=== PATIENT | female | born 1950 | race Caucasian/White ===

== ENCOUNTER → 2017-12-25 | Outpatient (CLI) | payer BC, MEDICARE ==
[~2017-12-25] MED LIST: ASCO500; ASPI325 PO; ASPI81EC PO; CALCAVITD PO; CALCAVITDA PO; CEFD300 PO; CELE200 PO; Calcium Glucon500 MG PO; Cyclobenzaprine5 MG PO; ERGO400 PO; ESOM20 PO; Esgic Tablet1 EACH; Esgic Tablet1 EACH PO; GLUC500 PO; HYDACE5 PO; HYDR1TAB94 PO; ISOMON30 PO; LISI10; MAGOXI400 PO; METO25ER; METO25ER PO; MULVITMIND; NISO10ER PO; NISOLDIPINE17 MG PO; Nitrostat0.4 MG SL; OMEP20ER PO; ONDA8ODT MM; OXYACE5T PO; PRAV20 PO; PRED10; PROM25 PO; PROP10 PO; PROP20 PO; Plavix75 MG PO; RABE20; Sular17 MG PO; VITAMIN D5000 UNI1 PO; Zanaflex4 MG PO; [UNRECOGNIZED DRUG - OTHER]
== END | disposition home or self-care (01) ==
LOC: LAB SHORT 12:13 → LAB EV 12:13
DX: N39.0 Urinary tract infection, site not specified (principal)
CPT/HCPCS: 87086

== ENCOUNTER 2017-12-27 10:43 | Emergency (ER) | payer BC, MEDICARE ==
[~2017-12-27] VITALS: Ht 177.8 cm; Wt 96.6 kg
[~2017-12-27 10:43] MED LIST changes: -CEFD300 PO; -Esgic Tablet1 EACH; -HYDR1TAB94 PO; -PRED10; -Zanaflex4 MG PO
[2017-12-27 11:24] LABS: BASOPHILS ABSOLUTE AUTO 0.07 K/mm3 (0.00-0.23); BASOPHILS PERCENT AUTO 1 % (0-2); EOSINOPHILS ABSOLUTE AUTO 0.37 K/mm3 (0.00-0.68); EOSINOPHILS PERCENT AUTO 5 % (0-6); Hematocrit 40.6 % (33.0-51.0); Hemoglobin 13.7 g/dL (11.5-16.0); IMMATURE GRAN ABSOLUTE AUTO 0.03 K/mm3 (0.00-0.10); IMMATURE GRAN PERCENT AUTO 0 % (0-1); LYMPHOCYTES ABSOLUTE AUTO 2.14 K/mm3 (0.84-5.20); LYMPHOCYTES PERCENT AUTO 28 % (21-46); MONOCYTES ABSOLUTE AUTO 0.79 K/mm3 (0.16-1.47); MONOCYTES PERCENT AUTO 10 % (4-13); Mean Corpuscular HGB 29.5 pg (26.0-34.0); Mean Corpuscular HGB Conc 33.7 g/dL (31.5-36.5); Mean Corpuscular Volume 88 fL (80-100); NEUTROPHILS ABSOLUTE AUTO 4.23 K/mm3 (1.96-9.15); NEUTROPHILS PERCENT AUTO 56 % (41-73); Platelet Count 215 K/mm3 (150-400); RDW Coefficient Variation 12.6 % (11.7-14.2); RDW Standard Deviation 39.9 fL (35.1-46.3); Red Blood Cell Count 4.64 M/mm3 (3.80-5.20); White Blood Cell Count 7.63 K/mm3 (4.00-11.30)
[2017-12-27] MEDS ORDERED: CEFD300 PO (11:34)
[2017-12-27] MEDS ORDERED: PRED10 (11:34)
[2017-12-27 11:35] LABS: Albumin, Blood 4.1 g/dL (3.4-5.0); Albumin/Globulin Ratio 1.3 (0.8-1.8); Bilirubin, Total 0.6 mg/dL (0.1-1.0); Bun/Creatinine Ratio 21.3 (12.0-20.0); Calcium, Blood 9.4 mg/dL (8.5-10.1); Creatinine, Blood 0.99 mg/dL (0.40-1.00); Globulin, Blood 3.2 g/dL (2.2-4.0); Potassium, Blood 4.4 mmol/L (3.5-5.5); Total Protein, Blood 7.3 g/dL (6.4-8.2)
[2017-12-27] MEDS ORDERED: Zanaflex4 MG PO (11:35)
[2017-12-27] MEDS ORDERED: HYDR1TAB94 PO (13:40)
[2017-12-28] MEDS ORDERED: Esgic Tablet1 EACH (17:36)
[2017-12-28] MEDS ORDERED: ESOM20 PO (17:37)
== END 2017-12-27 13:30 | disposition home or self-care (01) ==
LOC: ER 10:43
PROVIDERS: Emergency Medicine
DX: R10.9 Unspecified abdominal pain (principal); R91.1 Solitary pulmonary nodule; Z85.038 Personal history of other malignant neoplasm of large intestine; Z88.8 Allergy status to other drugs, medicaments and biological substances; Z79.82 Long term (current) use of aspirin; Z79.899 Other long term (current) drug therapy; I10 Essential (primary) hypertension; Z86.73 Personal history of transient ischemic attack (TIA), and cerebral infarction without residual deficits
CPT/HCPCS: 74176; 80053; 83690; 85025; J1885; J2405; J3010; J7030

== ENCOUNTER 2017-12-29 07:24 | Day surgery (SDC) | payer BC, MEDICARE ==
[~2017-12-29] VITALS: Ht 175.3 cm; Wt 97.5 kg
[~2017-12-29 07:24] MED LIST changes: +CEFD300 PO; +Esgic Tablet1 EACH; +HYDR1TAB94 PO; +PRED10; +Zanaflex4 MG PO
[2018-01-03 11:27] LABS: CD19 SEE LABOUT RESULTS; CD3 SEE LABOUT RESULTS; CD8 SEE LABOUT RESULTS
[2018-01-03 11:28] LABS: CD4 SEE LABOUT RESULTS; CD4/CD8 Ratio SEE LABOUT RESULTS
== END 2017-12-29 22:49 | disposition home or self-care (01) ==
LOC: ORSCMMR 07:24 → ORD 08:30 → ORSCMMR 22:49
PROVIDERS: Internal Medicine Critical Care Medicine
PROC: 0BBB8ZX Excision of Left Lower Lobe Bronchus, Via Natural or Artificial Opening Endoscopic, Diagnostic (ICD-10-PCS; principal; 2017-12-29 08:30)
PROC: 0B9H8ZX Drainage of Lung Lingula, Via Natural or Artificial Opening Endoscopic, Diagnostic (ICD-10-PCS; principal; 2017-12-29 08:30)
PROC: 0BB68ZX Excision of Right Lower Lobe Bronchus, Via Natural or Artificial Opening Endoscopic, Diagnostic (ICD-10-PCS; principal; 2017-12-29 08:30)
DX: R94.2 Abnormal results of pulmonary function studies (principal); C83.39 Diffuse large B-cell lymphoma, extranodal and solid organ sites; Z86.73 Personal history of transient ischemic attack (TIA), and cerebral infarction without residual deficits; G47.33 Obstructive sleep apnea (adult) (pediatric); K21.9 Gastro-esophageal reflux disease without esophagitis; K22.70 Barrett's esophagus without dysplasia; R73.01 Impaired fasting glucose; Z85.038 Personal history of other malignant neoplasm of large intestine; I10 Essential (primary) hypertension; Z79.899 Other long term (current) drug therapy; Z79.82 Long term (current) use of aspirin
CPT/HCPCS: 86355; 86359; 86360; 87070; 87205; 88108; 88173; 88305; 88312; 88341; 88342; J2250; J3010; J7120

== ENCOUNTER 2018-01-24 10:32 | Day surgery (SDC) | payer BC, MEDICARE ==
[~2018-01-24] VITALS: Ht 175.3 cm; Wt 94.8 kg
[~2018-01-24 10:32] MED LIST changes: -Esgic Tablet1 EACH; +GABA300 PO; +TRAM50 PO
== END 2018-01-24 15:00 | disposition home or self-care (01) ==
LOC: ORSCMMR 10:32
PROVIDERS: Surgery
PROC: 0JH60WZ Insertion of Totally Implantable Vascular Access Device into Chest Subcutaneous Tissue and Fascia, Open Approach (ICD-10-PCS; principal; 2018-01-24 12:30)
DX: C83.30 Diffuse large B-cell lymphoma, unspecified site (principal); I10 Essential (primary) hypertension; Z79.82 Long term (current) use of aspirin; Z79.899 Other long term (current) drug therapy
CPT/HCPCS: 77001; C1788; J0690; J1642; J2001; J2250; J7120

== ENCOUNTER 2018-02-14 11:14 | Emergency (ER) | payer BC, MEDICARE ==
[~2018-02-14] VITALS: Ht 177.8 cm; Wt 93.0 kg
[2018-02-14] MEDS ORDERED: CIPR500 PO (11:44)
[2018-02-14] MEDS ORDERED: ACYC200 PO (11:45)
[2018-02-14] MEDS ORDERED: METO10 PO (11:46)
[2018-02-14] MEDS ORDERED: PRED20 PO (11:47)
[2018-02-14] MEDS ORDERED: Hydrocodone-Ap1 EA23 PO (11:48)
[2018-02-14] MEDS ORDERED: LORA.5 PO (11:48)
[2018-02-14] MEDS ORDERED: ONDA8 PO (11:48)
[2018-02-14 12:05] LABS: Hematocrit 32.9 % (33.0-51.0); Hemoglobin 10.8 g/dL (11.5-16.0); Mean Corpuscular HGB 29.8 pg (26.0-34.0); Mean Corpuscular HGB Conc 32.8 g/dL (31.5-36.5); Mean Corpuscular Volume 91 fL (80-100); Mean Platelet Volume 10.3 fL (9.1-12.4); Platelet Count 102 K/mm3 (150-400); RDW Coefficient Variation 12.4 % (11.7-14.2); RDW Standard Deviation 41.4 fL (35.1-46.3); Red Blood Cell Count 3.63 M/mm3 (3.80-5.20); White Blood Cell Count 2.68 K/mm3 (4.00-11.30)
[2018-02-14 12:38] LABS: Alanine Aminotransfer (ALT/SGP 29 U/L (12-78); Albumin, Blood 3.4 g/dL (3.4-5.0); Albumin/Globulin Ratio 1.2 (0.8-1.8); Alk Phos 86 U/L (50-136); Anion Gap 8 mmol/L (6-16); Aspartate Aminotrans (AST/SGOT 18 U/L (12-37); Bilirubin, Total 0.3 mg/dL (0.1-1.0); Blood Urea Nitrogen 12 mg/dL (8-24); Bun/Creatinine Ratio 14.8 (12.0-20.0); CO2, Blood 25 mmol/L (21-32); Calcium, Blood 9.1 mg/dL (8.5-10.1); Chloride, Blood 107 mmol/L (98-108); Creatinine, Blood 0.81 mg/dL (0.40-1.00); Globulin, Blood 2.8 g/dL (2.2-4.0); Glomerular Filtration Rate >60 (60-); Glucose, Blood 157 mg/dL (70-99); Potassium, Blood 3.7 mmol/L (3.5-5.5); Sodium, Blood 140 mmol/L (136-145); Total Protein, Blood 6.2 g/dL (6.4-8.2)
[2018-02-14 13:01] LABS: BAND PERCENT MAN 3 % (0-8); BASOPHILS PERCENT MAN 0 % (0-2); EOSINOPHILS PERCENT MAN 4 % (0-6); LYMPHOCYTES % ATYPICAL MANUAL 1 % (0-0); LYMPHOCYTES ABSOLUTE MAN 0.75 K/mm3 (0.84-5.20); LYMPHOCYTES PERCENT MAN 27 % (21-46); METAMYELOCYTE ABSOLUTE MAN 0.02 K/mm3 (0.00-0.00); METAMYELOCYTE PERCENT MAN 1 % (0-0); MONOCYTES ABSOLUTE MAN 0.37 K/mm3 (0.16-1.47); MONOCYTES PERCENT MAN 14 % (4-13); MYELOCYTE ABSOLUTE MAN 0.02 K/mm3 (0.00-0.00); MYELOCYTE PERCENT MAN 1 % (0-0); NEUTROPHILS ABSOLUTE MAN 1.39 K/mm3 (1.96-9.15); SEG NEUTROPHILS PERCENT MAN 49 % (41-73); TOTAL CELLS COUNTED 100
== END 2018-02-14 14:17 | disposition home or self-care (01) ==
LOC: ER 11:14
PROVIDERS: Nurse Practitioner Family
DX: R20.0 Anesthesia of skin (principal); Z85.72 Personal history of non-Hodgkin lymphomas; Z88.8 Allergy status to other drugs, medicaments and biological substances; Z79.899 Other long term (current) drug therapy; Z79.2 Long term (current) use of antibiotics; Z79.52 Long term (current) use of systemic steroids; Z79.891 Long term (current) use of opiate analgesic; Z79.82 Long term (current) use of aspirin; I10 Essential (primary) hypertension; K21.9 Gastro-esophageal reflux disease without esophagitis
CPT/HCPCS: 36415; 70450; 71046; 80053; 85025; 93005; 93010

== ENCOUNTER 2018-11-26 08:52 | Emergency (ER) | payer OTHER, BC, MEDICARE ==
[~2018-11-26] VITALS: Ht 177.8 cm; Wt 93.0 kg
[~2018-11-26 08:52] MED LIST changes: +ACYC200 PO; +CIPR500 PO; +Hydrocodone-Ap1 EA23 PO; +LORA.5 PO; +METO10 PO; +ONDA8 PO; +PRED20 PO
[2018-11-26] MEDS ORDERED: Zofran8 MG PO (11:58)
[2018-11-26] MEDS ORDERED: IBUP400 PO (11:58)
== END 2018-11-26 12:26 | disposition home or self-care (01) ==
LOC: ER 08:52
DX: S09.90XA Unspecified injury of head, initial encounter (principal); I10 Essential (primary) hypertension; K21.9 Gastro-esophageal reflux disease without esophagitis; Z88.8 Allergy status to other drugs, medicaments and biological substances; Z79.82 Long term (current) use of aspirin; Z79.899 Other long term (current) drug therapy; W22.8XXA Striking against or struck by other objects, initial encounter
CPT/HCPCS: 70450; 99283-25

== ENCOUNTER → 2019-06-18 | Outpatient (CLI) | payer MEDICARE, OTHER ==
[~2019-06-18] MED LIST changes: +IBUP400 PO; +Zofran8 MG PO
[2019-06-20 15:07] LABS: HPV 16 Negative (Negative); HPV 18 Negative (Negative); HPV OTHER HR TYPES Negative (Negative)
== END | disposition home or self-care (01) ==
LOC: LAB SHORT 17:49 → LAB 17:49
PROVIDERS: Obstetrics & Gynecology Gynecology
DX: Z91.89 Other specified personal risk factors, not elsewhere classified (principal)
CPT/HCPCS: 87624; G0123

== ENCOUNTER → 2019-06-25 | Outpatient (CLI) | payer MEDICARE, OTHER | END | disposition home or self-care (01) | LOC: PLD 07:52 → LAB SHORT 07:52 | DX: D48.5 Neoplasm of uncertain behavior of skin (principal) | CPT/HCPCS: 88305 ==

== ENCOUNTER 2019-08-16 10:53 | Day surgery (SDC) | payer MEDICARE, OTHER ==
[~2019-08-16] VITALS: Ht 177.8 cm; Wt 98.7 kg
== END 2019-08-16 13:20 | disposition home or self-care (01) ==
LOC: ORSCSDS 10:53
PROVIDERS: Internal Medicine Gastroenterology
PROC: 0DBL8ZX Excision of Transverse Colon, Via Natural or Artificial Opening Endoscopic, Diagnostic (ICD-10-PCS; principal; 2019-08-16 12:30)
DX: R19.4 Change in bowel habit (principal); D12.3 Benign neoplasm of transverse colon; K64.8 Other hemorrhoids; Z80.0 Family history of malignant neoplasm of digestive organs; I10 Essential (primary) hypertension; K75.81 Nonalcoholic steatohepatitis (NASH); Z85.038 Personal history of other malignant neoplasm of large intestine; C85.90 Non-Hodgkin lymphoma, unspecified, unspecified site; G47.33 Obstructive sleep apnea (adult) (pediatric); Z79.82 Long term (current) use of aspirin; Z79.899 Other long term (current) drug therapy
CPT/HCPCS: 88305; J2704; J7120

== ENCOUNTER → 2019-12-13 | Outpatient (CLI) | payer MEDICARE, OTHER ==
[2019-12-13 09:10] LABS: BASOPHILS ABSOLUTE AUTO 0.04 K/mm3 (0.00-0.23); BASOPHILS PERCENT AUTO 1 % (0-2); EOSINOPHILS ABSOLUTE AUTO 0.23 K/mm3 (0.00-0.68); EOSINOPHILS PERCENT AUTO 5 % (0-6); Hemoglobin 13.3 g/dL (11.5-16.0); IMMATURE GRAN ABSOLUTE AUTO 0.05 K/mm3 (0.00-0.10); IMMATURE GRAN PERCENT AUTO 1 % (0-1); LYMPHOCYTES ABSOLUTE AUTO 1.39 K/mm3 (0.84-5.20); LYMPHOCYTES PERCENT AUTO 29 % (21-46); MONOCYTES ABSOLUTE AUTO 0.41 K/mm3 (0.16-1.47); MONOCYTES PERCENT AUTO 9 % (4-13); Mean Corpuscular HGB 31.7 pg (26.0-34.0); Mean Corpuscular HGB Conc 34.1 g/dL (31.5-36.5); Mean Corpuscular Volume 93 fL (80-100); Mean Platelet Volume 10.7 fL (9.1-12.4); NEUTROPHILS ABSOLUTE AUTO 2.64 K/mm3 (1.96-9.15); NEUTROPHILS PERCENT AUTO 56 % (41-73); Platelet Count 141 K/mm3 (150-400); RDW Coefficient Variation 12.1 % (11.7-14.2); RDW Standard Deviation 41.4 fL (35.1-46.3); White Blood Cell Count 4.76 K/mm3 (4.00-11.30)
[2019-12-13 09:15] LABS: Albumin, Blood 4.2 g/dL (3.4-5.0); Albumin/Globulin Ratio 1.5 (0.8-1.8); Bilirubin, Total 0.4 mg/dL (0.1-1.0); Bun/Creatinine Ratio 22.3 (12.0-20.0); Calcium, Blood 8.6 mg/dL (8.5-10.1); Creatinine, Blood 1.03 mg/dL (0.40-1.00); Globulin, Blood 2.8 g/dL (2.2-4.0); Potassium, Blood 3.9 mmol/L (3.5-5.5); Uric Acid, Blood 4.6 mg/dL (2.6-6.0)
== END | disposition home or self-care (01) ==
LOC: LAB SHORT 09:00 → LAB EV 09:00
PROVIDERS: General Practice
DX: M25.562 Pain in left knee (principal)
CPT/HCPCS: 80053; 84550; 85025; 85651

== ENCOUNTER 2020-04-10 01:14 | Emergency (ER) | payer MEDICARE, OTHER ==
[~2020-04-10] VITALS: Ht 177.8 cm; Wt 95.2 kg
[2020-04-10 02:56] LABS: Alanine Aminotransfer (ALT/SGP 18 U/L (12-78); Albumin, Blood 3.8 g/dL (3.4-5.0); Albumin/Globulin Ratio 1.5 (0.8-1.8); Alk Phos 101 U/L (50-136); Anion Gap 7 mmol/L (6-16); Aspartate Aminotrans (AST/SGOT 12 U/L (12-37); Bilirubin, Total 0.3 mg/dL (0.1-1.0); Blood Urea Nitrogen 27 mg/dL (8-24); Bun/Creatinine Ratio 30.8 (12.0-20.0); CO2, Blood 24 mmol/L (21-32); Calcium, Blood 8.9 mg/dL (8.5-10.1); Chloride, Blood 110 mmol/L (98-108); Creatinine, Blood 0.88 mg/dL (0.40-1.00); Globulin, Blood 2.5 g/dL (2.2-4.0); Glomerular Filtration Rate >60 (60-); Glucose, Blood 138 mg/dL (70-99); Sodium, Blood 141 mmol/L (136-145); Total Protein, Blood 6.3 g/dL (6.4-8.2); Troponin I <0.015 ng/mL (0.000-0.040)
[2020-04-10 03:18] LABS: BASOPHILS ABSOLUTE AUTO 0.04 K/mm3 (0.00-0.23); BASOPHILS PERCENT AUTO 1 % (0-2); EOSINOPHILS ABSOLUTE AUTO 0.36 K/mm3 (0.00-0.68); EOSINOPHILS PERCENT AUTO 7 % (0-6); Hematocrit 35.4 % (33.0-51.0); Hemoglobin 11.8 g/dL (11.5-16.0); IMMATURE GRAN PERCENT AUTO 0 % (0-1); LYMPHOCYTES ABSOLUTE AUTO 1.77 K/mm3 (0.84-5.20); LYMPHOCYTES PERCENT AUTO 33 % (21-46); MONOCYTES ABSOLUTE AUTO 0.58 K/mm3 (0.16-1.47); MONOCYTES PERCENT AUTO 11 % (4-13); Mean Corpuscular HGB 32.3 pg (26.0-34.0); Mean Corpuscular HGB Conc 33.3 g/dL (31.5-36.5); Mean Corpuscular Volume 97 fL (80-100); Mean Platelet Volume 10.3 fL (9.1-12.4); NEUTROPHILS ABSOLUTE AUTO 2.55 K/mm3 (1.96-9.15); NEUTROPHILS PERCENT AUTO 48 % (41-73); Platelet Count 135 K/mm3 (150-400); RDW Coefficient Variation 12.1 % (11.7-14.2); RDW Standard Deviation 43.1 fL (35.1-46.3); Red Blood Cell Count 3.65 M/mm3 (3.80-5.20)
== END 2020-04-10 04:24 | disposition home or self-care (01) ==
LOC: ER 01:14
PROVIDERS: Emergency Medicine
DX: R07.9 Chest pain, unspecified (principal); I10 Essential (primary) hypertension; K21.9 Gastro-esophageal reflux disease without esophagitis; Z86.73 Personal history of transient ischemic attack (TIA), and cerebral infarction without residual deficits; Z88.8 Allergy status to other drugs, medicaments and biological substances; Z79.82 Long term (current) use of aspirin; Z79.899 Other long term (current) drug therapy
CPT/HCPCS: 80053; 84484; 85025; 93005; 93010; 96374; 99284-25; J1885

== ENCOUNTER 2020-10-16 06:11 | Day surgery (SDC) | payer MEDICARE, OTHER ==
[~2020-10-16] VITALS: Ht 177.8 cm; Wt 95.0 kg
[2020-10-16] MEDS ORDERED: BUTALB-ACETAMI1 EAC5 PO (07:07)
--- NOTE | 2020-10-16 07:42 | NUR ---
10/16/20 0742 Chiqui Alamo BUPIVACAINE 0.5% 30 MLS MIXED WITH EPI 0.15 ML TO MAKE A CONCENTRATION OF BUPIVACAINE 0.5% 1:200,000 FOR INJECTION AT OPSITE BY DR. ALVAREZ PER ORDER. DR. ALVAREZ INJECTED 30MLS OF BUPIVACAINE 0.5% 1:200,000 AT [facility].
--- NOTE | 2020-10-16 08:36 | NUR ---
10/16/20 0836 Mehnaz Mckeon PT IN THE RECLINER AT THIS TIME. VSS. PT HAS WATER AND SNACKS AT CHAIR SIDE. OP LIMB IS ELEVATED ON A PILLOW AND ICE IS APPLIED BEHIND THE RIGHT KNEE. PT COMPLAINS OF PAIN 7/10; IV PAIN MEDICATION GIVEN PER DR'S ORDERS. CALL LIGHT IN REACH.
[2021-02-18] MEDS ORDERED: BUTALB-ACETAMI1 EAC6 PO (12:59)
[2021-02-18] MEDS ORDERED: ASPI325EC PO (12:59)
[2021-02-18] MEDS ORDERED: EPIPEN0.3 MG/0.3 IM (12:59)
[2021-02-18] MEDS ORDERED: IBUP400 PO (13:00)
[2021-02-18] MEDS ORDERED: Nexium40 MG PO (13:00)
[2021-02-18] MEDS ORDERED: METO25ER PO (13:00)
[2021-02-18] MEDS ORDERED: Norco 5-325 Ta1 EACH PO (13:00)
[2021-02-18] MEDS ORDERED: NISOLDIPINE17 MG PO (13:01)
[2021-02-18] MEDS ORDERED: VITAMIN D325 MC3 PO (13:01)
[2021-02-18] MEDS ORDERED: NYSTOP15 GM (13:01)
[2021-03-01] MEDS ORDERED: LINZESS145 MCG PO (12:30)
[2021-03-01] MEDS ORDERED: CALCIUM CIT 311 EAC7 PO (12:30)
== END 2020-10-16 09:08 | disposition home or self-care (01) ==
LOC: ORSCSDS 06:11
PROVIDERS: Podiatrist Foot & Ankle Surgery
PROC: 0LBV0ZZ Excision of Right Foot Tendon, Open Approach (ICD-10-PCS; principal; 2020-10-16 07:30)
PROC: 0QBQ0ZZ Excision of Right Toe Phalanx, Open Approach (ICD-10-PCS; principal; 2020-10-16 07:30)
DX: M67.471 Ganglion, right ankle and foot (principal); M20.61 Acquired deformities of toe(s), unspecified, right foot; I10 Essential (primary) hypertension; G47.33 Obstructive sleep apnea (adult) (pediatric); Z86.73 Personal history of transient ischemic attack (TIA), and cerebral infarction without residual deficits; Z79.82 Long term (current) use of aspirin; Z79.899 Other long term (current) drug therapy
CPT/HCPCS: J0171; J0690; J1100; J1885; J2250; J2405; J2704; J3010; J7120

== ENCOUNTER → 2020-12-31 | Outpatient (CLI) | payer MEDICARE, OTHER ==
[~2020-12-31] MED LIST changes: +ASPI325EC PO; +BUTALB-ACETAMI1 EAC5 PO; +BUTALB-ACETAMI1 EAC6 PO; +CALCIUM CIT 311 EAC7 PO; +EPIPEN0.3 MG/0.3 IM; +LINZESS145 MCG PO; +NYSTOP15 GM; +Nexium40 MG PO; +Norco 5-325 Ta1 EACH PO; +VITAMIN D325 MC3 PO
== END ==
LOC: LAB 11:26 → LAB SHORT 11:26
DX: D48.5 Neoplasm of uncertain behavior of skin (principal); D22.71 Melanocytic nevi of right lower limb, including hip
CPT/HCPCS: 88305

== ENCOUNTER 2021-01-03 20:10 | Emergency (ER) | payer MEDICARE, OTHER ==
[~2021-01-03] VITALS: Ht 177.8 cm; Wt 97.5 kg
[~2021-01-03 20:10] MED LIST changes: -ASPI325EC PO; -BUTALB-ACETAMI1 EAC6 PO; -CALCIUM CIT 311 EAC7 PO; -EPIPEN0.3 MG/0.3 IM; -LINZESS145 MCG PO; -NYSTOP15 GM; -Nexium40 MG PO; -Norco 5-325 Ta1 EACH PO; -VITAMIN D325 MC3 PO
[2021-01-03 20:36] LABS: BASOPHILS ABSOLUTE AUTO 0.05 K/mm3 (0.00-0.23); BASOPHILS PERCENT AUTO 1 % (0-2); EOSINOPHILS ABSOLUTE AUTO 0.37 K/mm3 (0.00-0.68); EOSINOPHILS PERCENT AUTO 5 % (0-6); Hematocrit 37.6 % (33.0-51.0); Hemoglobin 12.5 g/dL (11.5-16.0); IMMATURE GRAN ABSOLUTE AUTO 0.02 K/mm3 (0.00-0.10); IMMATURE GRAN PERCENT AUTO 0 % (0-1); LYMPHOCYTES ABSOLUTE AUTO 2.64 K/mm3 (0.84-5.20); LYMPHOCYTES PERCENT AUTO 37 % (21-46); MONOCYTES ABSOLUTE AUTO 0.57 K/mm3 (0.16-1.47); MONOCYTES PERCENT AUTO 8 % (4-13); Mean Corpuscular HGB 31.1 pg (26.0-34.0); Mean Corpuscular HGB Conc 33.2 g/dL (31.5-36.5); Mean Corpuscular Volume 94 fL (80-100); Mean Platelet Volume 10.5 fL (9.1-12.4); NEUTROPHILS ABSOLUTE AUTO 3.47 K/mm3 (1.96-9.15); NEUTROPHILS PERCENT AUTO 49 % (41-73); Platelet Count 172 K/mm3 (150-400); RDW Coefficient Variation 12.4 % (11.7-14.2); RDW Standard Deviation 42.9 fL (35.1-46.3); Red Blood Cell Count 4.02 M/mm3 (3.80-5.20); White Blood Cell Count 7.12 K/mm3 (4.00-11.30)
[2021-01-03 20:56] LABS: Alanine Aminotransfer (ALT/SGP 22 U/L (12-78); Albumin, Blood 3.8 g/dL (3.4-5.0); Albumin/Globulin Ratio 1.3 (0.8-1.8); Alk Phos 107 U/L (50-136); Anion Gap 6 mmol/L (6-16); Aspartate Aminotrans (AST/SGOT 20 U/L (12-37); Bilirubin, Total 0.3 mg/dL (0.1-1.0); Blood Urea Nitrogen 28 mg/dL (8-24); Bun/Creatinine Ratio 25.7 (12.0-20.0); CO2, Blood 23 mmol/L (21-32); Calcium, Blood 9.1 mg/dL (8.5-10.1); Chloride, Blood 112 mmol/L (98-108); Creatinine, Blood 1.09 mg/dL (0.40-1.00); Glomerular Filtration Rate 53 (60-); Glucose, Blood 121 mg/dL (70-99); Potassium, Blood 3.9 mmol/L (3.5-5.5); Sodium, Blood 141 mmol/L (136-145); Total Protein, Blood 6.8 g/dL (6.4-8.2); Troponin I <0.015 ng/mL (0.000-0.040)
[2021-02-18] MEDS ORDERED: EPIPEN0.3 MG/0.3 IM (12:59)
[2021-02-18] MEDS ORDERED: BUTALB-ACETAMI1 EAC6 PO (12:59)
[2021-02-18] MEDS ORDERED: ASPI325EC PO (12:59)
[2021-02-18] MEDS ORDERED: Nexium40 MG PO (13:00)
[2021-02-18] MEDS ORDERED: IBUP400 PO (13:00)
[2021-02-18] MEDS ORDERED: METO25ER PO (13:00)
[2021-02-18] MEDS ORDERED: Norco 5-325 Ta1 EACH PO (13:00)
[2021-02-18] MEDS ORDERED: NYSTOP15 GM (13:01)
[2021-02-18] MEDS ORDERED: NISOLDIPINE17 MG PO (13:01)
[2021-02-18] MEDS ORDERED: VITAMIN D325 MC3 PO (13:01)
[2021-03-01] MEDS ORDERED: LINZESS145 MCG PO (12:30)
[2021-03-01] MEDS ORDERED: CALCIUM CIT 311 EAC7 PO (12:30)
== END 2021-01-03 23:33 | disposition home or self-care (01) ==
LOC: ER 20:10
PROVIDERS: Physician Assistant
DX: R07.9 Chest pain, unspecified (principal); I10 Essential (primary) hypertension; Z79.82 Long term (current) use of aspirin; Z79.899 Other long term (current) drug therapy; Z86.73 Personal history of transient ischemic attack (TIA), and cerebral infarction without residual deficits
CPT/HCPCS: 71045; 80053; 83690; 84484; 85025; 93005; 93010; 99285-25; A9270

== ENCOUNTER 2021-05-14 16:43 | Emergency (ER) | payer MEDICARE, OTHER ==
[~2021-05-14] VITALS: Ht 177.8 cm; Wt 97.5 kg
[~2021-05-14 16:43] MED LIST changes: +ASPI325EC PO; +BUTALB-ACETAMI1 EAC6 PO; +CALCIUM CIT 311 EAC7 PO; +EPIPEN0.3 MG/0.3 IM; +LINZESS145 MCG PO; +NYSTOP15 GM; +Nexium40 MG PO; +Norco 5-325 Ta1 EACH PO; +VITAMIN D325 MC3 PO
[2021-05-14] MEDS ORDERED: VITAMIN D5000 UNIT PO (17:28)
[2021-05-14] MEDS ORDERED: KETO10 PO (18:41)
== END 2021-05-14 18:54 | disposition home or self-care (01) ==
LOC: ER 16:43
DX: M54.18 Radiculopathy, sacral and sacrococcygeal region (principal); I10 Essential (primary) hypertension; K21.9 Gastro-esophageal reflux disease without esophagitis
CPT/HCPCS: 73502; 93971; 99284-25

== ENCOUNTER 2021-06-03 15:09 | Emergency (ER) | payer MEDICARE, OTHER ==
[~2021-06-03] VITALS: Ht 177.8 cm; Wt 97.5 kg
[~2021-06-03 15:09] MED LIST changes: +KETO10 PO; +VITAMIN D5000 UNIT PO
[2021-06-03] MEDS ORDERED: CYCL10 PO (16:33)
== END 2021-06-03 16:50 | disposition home or self-care (01) ==
LOC: ER 15:09
DX: M25.552 Pain in left hip (principal); R11.0 Nausea; Z88.8 Allergy status to other drugs, medicaments and biological substances; Z79.82 Long term (current) use of aspirin; Z79.899 Other long term (current) drug therapy; I10 Essential (primary) hypertension; K21.9 Gastro-esophageal reflux disease without esophagitis; M19.90 Unspecified osteoarthritis, unspecified site; Z86.73 Personal history of transient ischemic attack (TIA), and cerebral infarction without residual deficits
CPT/HCPCS: 73502; 99283-25; A9270

== ENCOUNTER → 2021-07-08 | Outpatient (CLI) | payer MEDICARE, OTHER ==
[~2021-07-08] MED LIST changes: +CYCL10 PO
== END | disposition home or self-care (01) ==
LOC: LAB SHORT 15:03 → LAB 15:03
DX: R07.9 Chest pain, unspecified (principal)
CPT/HCPCS: 84484; 85379

== ENCOUNTER 2021-11-26 19:58 | Emergency (ER) | payer OTHER ==
[~2021-11-26] VITALS: Ht 177.8 cm; Wt 90.3 kg
[2021-11-26 20:31] LABS: BASOPHILS ABSOLUTE AUTO 0.42 K/mm3 (0.00-0.23); BASOPHILS PERCENT AUTO 3 % (0-2); EOSINOPHILS ABSOLUTE AUTO 0.62 K/mm3 (0.00-0.68); EOSINOPHILS PERCENT AUTO 4 % (0-6); Hematocrit 43.9 % (33.0-51.0); Hemoglobin 14.4 g/dL (11.5-16.0); IMMATURE GRAN ABSOLUTE AUTO 0.43 K/mm3 (0.00-0.10); IMMATURE GRAN PERCENT AUTO 3 % (0-1); LYMPHOCYTES ABSOLUTE AUTO 3.25 K/mm3 (0.84-5.20); LYMPHOCYTES PERCENT AUTO 20 % (21-46); MONOCYTES ABSOLUTE AUTO 1.23 K/mm3 (0.16-1.47); MONOCYTES PERCENT AUTO 7 % (4-13); Mean Corpuscular HGB 29.8 pg (26.0-34.0); Mean Corpuscular HGB Conc 32.8 g/dL (31.5-36.5); Mean Corpuscular Volume 91 fL (80-100); Mean Platelet Volume 10.8 fL (9.1-12.4); NEUTROPHILS ABSOLUTE AUTO 10.67 K/mm3 (1.96-9.15); NEUTROPHILS PERCENT AUTO 64 % (41-73); Platelet Count 285 K/mm3 (150-400); RDW Coefficient Variation 13.9 % (11.7-14.2); RDW Standard Deviation 46.7 fL (35.1-46.3); Red Blood Cell Count 4.83 M/mm3 (3.80-5.20); White Blood Cell Count 16.62 K/mm3 (4.00-11.30)
[2021-11-26 20:58] LABS: Albumin, Blood 4.2 g/dL (3.4-5.0); Albumin/Globulin Ratio 1.5 (0.8-1.8); Bilirubin, Total 0.4 mg/dL (0.1-1.0); Bun/Creatinine Ratio 17.6 (12.0-20.0); Calcium, Blood 9.6 mg/dL (8.5-10.1); Creatinine, Blood 1.25 mg/dL (0.40-1.00); Globulin, Blood 2.8 g/dL (2.2-4.0); Potassium, Blood 4.5 mmol/L (3.5-5.5)
== END 2021-11-26 23:46 | disposition home or self-care (01) ==
LOC: ER 19:58
PROVIDERS: Physician Assistant
DX: R07.9 Chest pain, unspecified (principal); K21.9 Gastro-esophageal reflux disease without esophagitis; I10 Essential (primary) hypertension; Z79.899 Other long term (current) drug therapy
CPT/HCPCS: 36415; 71045; 80053; 83690; 84484; 85025; 93005; 93010; 96374; 99285-25; A9270; J1885

== ENCOUNTER 2022-01-04 07:38 | Day surgery (SDC) | payer OTHER ==
[~2022-01-04] VITALS: Ht 177.8 cm; Wt 89.9 kg
== END 2022-01-04 09:32 | disposition home or self-care (01) ==
LOC: ORSCSDS 07:38
PROVIDERS: Student in an Organized Health Care Education/Training Program
PROC: 0DB58ZX Excision of Esophagus, Via Natural or Artificial Opening Endoscopic, Diagnostic (ICD-10-PCS; principal; 2022-01-04 09:00)
PROC: 0DB68ZX Excision of Stomach, Via Natural or Artificial Opening Endoscopic, Diagnostic (ICD-10-PCS; principal; 2022-01-04 09:00)
DX: K22.70 Barrett's esophagus without dysplasia (principal); K21.9 Gastro-esophageal reflux disease without esophagitis; K29.70 Gastritis, unspecified, without bleeding; Z87.19 Personal history of other diseases of the digestive system; I10 Essential (primary) hypertension; Z86.73 Personal history of transient ischemic attack (TIA), and cerebral infarction without residual deficits; Z79.899 Other long term (current) drug therapy
CPT/HCPCS: 88305; 88342; J2704; J7120

== ENCOUNTER → 2022-05-31 | Outpatient (CLI) | payer OTHER | END | disposition home or self-care (01) | LOC: LAB 09:28 → LAB SHORT 09:28 | DX: D48.5 Neoplasm of uncertain behavior of skin (principal) | CPT/HCPCS: 88305 ==

== ENCOUNTER → 2022-06-29 | Outpatient (CLI) | payer OTHER ==
[2022-07-01 15:08] LABS: HPV 16 Negative (Negative); HPV 18 Negative (Negative); HPV OTHER HR TYPES Negative (Negative)
== END ==
LOC: LAB 16:09 → LAB SHORT 16:09
PROVIDERS: Obstetrics & Gynecology
DX: Z01.419 Encounter for gynecological examination (general) (routine) without abnormal findings (principal)
CPT/HCPCS: 87624; G0123

== ENCOUNTER → 2022-09-06 | Outpatient (CLI) | payer OTHER | LOC: LAB SHORT 09:07 → PLD 09:07 | DX: L92.0 Granuloma annulare (principal) | CPT/HCPCS: 88305; 88312 ==

== ENCOUNTER 2022-09-22 08:57 | Day surgery (SDC) | payer OTHER ==
[~2022-09-22] VITALS: Ht 177.8 cm; Wt 88.0 kg
[~2022-09-22 08:57] MED LIST changes: +AMLO5 PO; +IBUP200 PO; +SPRYCEL PO
[2022-09-22] MEDS ORDERED: ROSU10TA PO (11:13)
--- NOTE | 2022-09-22 12:22 | NUR ---
DISCHARGE INSTRUCTIONS REVIEWED WITH PT AND SPOUSE. BOTH VERBALIZE UNDERSTANDING OF INSTRUCTIONS. NO FURTHER QUESTIONS AT THIS TIME.
--- NOTE | 2022-09-22 12:50 | NUR ---
PT DRESSED SELF WITHOUT ISSUE, SITE UNCHANGED. TR BAND REMOVED, CLOTH DOT AND WIRST IMMOBILIZER PLACED; IV REMOVED-CANNULA INTACT. PT DECLINED SLING.
--- NOTE | 2022-09-22 12:57 | NUR ---
REVIEWED DISCHARGE INSTRUCTIONS WITH PT AND , VERBALIZED GOOD UNDERSTANDING. PT LEFT FACILITY VIA W/C, CONDITION STABLE.
== END 2022-09-22 12:57 | disposition home or self-care (01) ==
LOC: MHTC 08:57
DX: R07.9 Chest pain, unspecified (principal); R06.09 Other forms of dyspnea; I25.10 Atherosclerotic heart disease of native coronary artery without angina pectoris; I77.810 Thoracic aortic ectasia; I13.10 Hypertensive heart and chronic kidney disease without heart failure, with stage 1 through stage 4 chronic kidney disease, or unspecified chronic kidney disease; N18.31 Chronic kidney disease, stage 3a; E78.5 Hyperlipidemia, unspecified; K21.9 Gastro-esophageal reflux disease without esophagitis; M19.90 Unspecified osteoarthritis, unspecified site; G47.33 Obstructive sleep apnea (adult) (pediatric); Z99.89 Dependence on other enabling machines and devices; Z79.899 Other long term (current) drug therapy; Z88.8 Allergy status to other drugs, medicaments and biological substances
CPT/HCPCS: 93454; 99152; 99153; C1769; C1894; J1644; J2250; J3010; J7030; J7050; Q9967

== ENCOUNTER 2023-02-23 10:52 | Day surgery (SDC) | payer OTHER ==
[~2023-02-23] VITALS: Ht 177.8 cm; Wt 84.4 kg
[~2023-02-23 10:52] MED LIST changes: +ROSU10TA PO
[2023-02-23 13:49] VITALS: BP 110/56
== END 2023-02-23 13:30 | disposition home or self-care (01) ==
LOC: ORSCSDS 10:52
PROVIDERS: Specialist
PROC: 0DBP8ZX Excision of Rectum, Via Natural or Artificial Opening Endoscopic, Diagnostic (ICD-10-PCS; principal; 2023-02-23 12:00)
PROC: 0DBL8ZX Excision of Transverse Colon, Via Natural or Artificial Opening Endoscopic, Diagnostic (ICD-10-PCS; principal; 2023-02-23 12:00)
PROC: 0DB58ZX Excision of Esophagus, Via Natural or Artificial Opening Endoscopic, Diagnostic (ICD-10-PCS; principal; 2023-02-23 12:00)
PROC: 0DB78ZX Excision of Stomach, Pylorus, Via Natural or Artificial Opening Endoscopic, Diagnostic (ICD-10-PCS; principal; 2023-02-23 12:00)
DX: K22.70 Barrett's esophagus without dysplasia (principal); Z85.038 Personal history of other malignant neoplasm of large intestine; K59.09 Other constipation; K21.9 Gastro-esophageal reflux disease without esophagitis; D12.3 Benign neoplasm of transverse colon; K62.1 Rectal polyp; K29.70 Gastritis, unspecified, without bleeding; Z80.0 Family history of malignant neoplasm of digestive organs; I10 Essential (primary) hypertension; Z86.73 Personal history of transient ischemic attack (TIA), and cerebral infarction without residual deficits; K75.81 Nonalcoholic steatohepatitis (NASH); C83.30 Diffuse large B-cell lymphoma, unspecified site; C92.10 Chronic myeloid leukemia, BCR/ABL-positive, not having achieved remission; Z79.899 Other long term (current) drug therapy
CPT/HCPCS: 88305; 88342; J2704; J7120

== ENCOUNTER 2023-04-25 21:52 | Emergency (ER) | payer OTHER ==
[~2023-04-25] VITALS: Ht 177.8 cm; Wt 90.7 kg
[2023-04-25 21:59] VITALS: BP 107/103
== END 2023-04-25 23:43 | disposition home or self-care (01) ==
LOC: ER 21:52
DX: M79.651 Pain in right thigh (principal); I10 Essential (primary) hypertension; K21.9 Gastro-esophageal reflux disease without esophagitis; Z88.8 Allergy status to other drugs, medicaments and biological substances; Z79.899 Other long term (current) drug therapy; Z79.82 Long term (current) use of aspirin
CPT/HCPCS: 93971; 99283-25

== ENCOUNTER → 2023-05-11 | Outpatient (CLI) | payer OTHER ==
[2023-05-11 18:25] LABS: BASOPHILS ABSOLUTE AUTO 0.04 K/mm3 (0.00-0.23); BASOPHILS PERCENT AUTO 0 % (0-2); EOSINOPHILS ABSOLUTE AUTO 0.24 K/mm3 (0.00-0.68); EOSINOPHILS PERCENT AUTO 3 % (0-6); Hematocrit 33.7 % (33.0-51.0); Hemoglobin 11.3 g/dL (11.5-16.0); IMMATURE GRAN ABSOLUTE AUTO 0.01 K/mm3 (0.00-0.10); IMMATURE GRAN PERCENT AUTO 0 % (0-1); LYMPHOCYTES ABSOLUTE AUTO 4.59 K/mm3 (0.84-5.20); LYMPHOCYTES PERCENT AUTO 50 % (21-46); MONOCYTES ABSOLUTE AUTO 0.68 K/mm3 (0.16-1.47); MONOCYTES PERCENT AUTO 7 % (4-13); Mean Corpuscular HGB 32.1 pg (26.0-34.0); Mean Corpuscular HGB Conc 33.5 g/dL (31.5-36.5); Mean Corpuscular Volume 96 fL (80-100); Mean Platelet Volume 10.5 fL (9.1-12.4); NEUTROPHILS ABSOLUTE AUTO 3.71 K/mm3 (1.96-9.15); NEUTROPHILS PERCENT AUTO 40 % (41-73); Platelet Count 184 K/mm3 (150-400); RDW Coefficient Variation 13.3 % (11.7-14.2); RDW Standard Deviation 47.1 fL (35.1-46.3); Red Blood Cell Count 3.52 M/mm3 (3.80-5.20); White Blood Cell Count 9.27 K/mm3 (4.00-11.30)
[2023-05-11 18:45] LABS: Bun/Creatinine Ratio 16.7 (12.0-20.0); Calcium, Blood 9.6 mg/dL (8.5-10.1); Creatinine, Blood 1.68 mg/dL (0.40-1.00); Potassium, Blood 3.9 mmol/L (3.5-5.5)
== END | disposition home or self-care (01) ==
LOC: LAB SHORT 17:15 → LAB 17:15
PROVIDERS: Physician Assistant Surgical
DX: R10.9 Unspecified abdominal pain (principal)
CPT/HCPCS: 80048; 85025

== ENCOUNTER 2023-09-30 00:30 | Emergency (ER) | payer OTHER ==
[~2023-09-30] VITALS: Ht 177.8 cm; Wt 87.5 kg
[2023-09-30] MEDS ORDERED: LINZESS290 MCG PO (00:44)
[2023-09-30] MEDS ORDERED: Acetaminophen 325 MG TABLET PO ONE (01:15)
[2023-09-30] MEDS ORDERED: Ketorolac Tromethamine 30mg Vial IV ONE (02:55)
[2023-09-30 03:04] VITALS: BP 143/69
== END 2023-09-30 03:00 | disposition home or self-care (01) ==
LOC: ER 00:30
DX: M79.602 Pain in left arm (principal); I10 Essential (primary) hypertension; K21.9 Gastro-esophageal reflux disease without esophagitis; C85.10 Unspecified B-cell lymphoma, unspecified site; Z88.8 Allergy status to other drugs, medicaments and biological substances; Z79.899 Other long term (current) drug therapy; Z79.82 Long term (current) use of aspirin
CPT/HCPCS: 71046; A9270; J1885

== ENCOUNTER 2024-05-11 19:38 | Emergency (ER) | payer OTHER ==
[~2024-05-11] VITALS: Ht 177.8 cm; Wt 88.5 kg
[~2024-05-11 19:38] MED LIST changes: +IBUP200; +LINZESS290 MCG PO; +NEOM500
[2024-05-11] MEDS ORDERED: Ketorolac Tromethamine 30mg Vial IM ONE (20:05)
[2024-05-11] MEDS ORDERED: Cyclobenzaprine HCl 10 MG Tab PO ONE (20:05)
[2024-05-11] MEDS ORDERED: CYCL10 PO (21:37)
[2024-05-11 21:58] VITALS: BP 136/76
== END 2024-05-11 21:59 | disposition home or self-care (01) ==
LOC: ER 19:38
DX: M70.72 Other bursitis of hip, left hip (principal); I10 Essential (primary) hypertension; K21.9 Gastro-esophageal reflux disease without esophagitis; Z88.8 Allergy status to other drugs, medicaments and biological substances; Z79.899 Other long term (current) drug therapy; Z86.73 Personal history of transient ischemic attack (TIA), and cerebral infarction without residual deficits; Z85.038 Personal history of other malignant neoplasm of large intestine; Z90.49 Acquired absence of other specified parts of digestive tract; M54.50 Low back pain, unspecified; M41.9 Scoliosis, unspecified; M47.816 Spondylosis without myelopathy or radiculopathy, lumbar region
CPT/HCPCS: 72100; 96372; 99283-25; A9270; J1885

== ENCOUNTER → 2025-04-02 | Outpatient (CLI) | payer OTHER ==
[2025-04-02 13:05] LABS: BASOPHILS ABSOLUTE AUTO 0.03 K/mm3 (0.00-0.23); BASOPHILS PERCENT AUTO 1 % (0-2); EOSINOPHILS ABSOLUTE AUTO 0.25 K/mm3 (0.00-0.68); EOSINOPHILS PERCENT AUTO 4 % (0-6); Hematocrit 33.9 % (33.0-51.0); Hemoglobin 11.2 g/dL (11.5-16.0); IMMATURE GRAN ABSOLUTE AUTO 0.01 K/mm3 (0.00-0.10); IMMATURE GRAN PERCENT AUTO 0 % (0-1); LYMPHOCYTES ABSOLUTE AUTO 3.19 K/mm3 (0.84-5.20); LYMPHOCYTES PERCENT AUTO 53 % (21-46); MONOCYTES ABSOLUTE AUTO 0.46 K/mm3 (0.16-1.47); MONOCYTES PERCENT AUTO 8 % (4-13); Mean Corpuscular HGB Conc 33.0 g/dL (31.5-36.5); Mean Corpuscular Volume 95 fL (80-100); NEUTROPHILS ABSOLUTE AUTO 2.11 K/mm3 (1.96-9.15); NEUTROPHILS PERCENT AUTO 35 % (41-73); NRBC ABSOLUTE 0.00 K/mm3 (0.00-0.02); NRBC Auto 0.0 /100 WBC (0.0-0.2); Platelet Count 199 K/mm3 (150-400); RDW Coefficient Variation 13.5 % (11.7-14.2); RDW Standard Deviation 46.7 fL (35.1-46.3)
[2025-04-02 13:14] LABS: Alanine Aminotransfer (ALT/SGP 19.0 U/L (12-78); Albumin, Blood 4.4 g/dL (3.4-5.0); Albumin/Globulin Ratio 1.4 (0.8-1.8); Anion Gap 15.0 mmol/L (6-16); Aspartate Aminotrans (AST/SGOT 27.0 U/L (12-37); Bilirubin, Total 0.6 mg/dL (0.1-1.0); Blood Urea Nitrogen 28.0 mg/dL (8-24); CO2, Blood 26.0 mmol/L (21-32); Calcium, Blood 9.6 mg/dL (8.5-10.1); Chloride, Blood 103.0 mmol/L (98-108); Creatinine, Blood 1.52 mg/dL (0.40-1.00); Globulin, Blood 3.1 g/dL (2.2-4.0); Glucose, Blood 101.0 mg/dL (70-99); Potassium, Blood 4.7 mmol/L (3.5-5.5); Sodium, Blood 139.0 mmol/L (136-145); Total Protein, Blood 7.5 g/dL (6.4-8.2)
== END ==
LOC: LAB 12:56 → LAB SHORT 12:56
PROVIDERS: Family Medicine
DX: R07.89 Other chest pain (principal)
CPT/HCPCS: 80053; 84484; 85025; 85379